=== PATIENT | female | born 2000 | race Caucasian/White ===

== ENCOUNTER 2018-04-15 20:04 | Emergency (ER) | payer OTHER ==
--- NOTE | 2018-04-15 21:19 | UC ---
Respiratory Complaint HPI - HPI Summary HPI Summary: Pt c/o of cough that began 6 weeks ago. Pt was diagnosed with bronchitis ~ 4 weeks ago and given amoxicillin and prednisone and symptoms resolved. Pt now states that cough has returned denies fever or URI like symptoms - History of Current Complaint Chief Complaint: UCEar Stated Complaint: COUGH,EAR,HEADACHE Time Seen by Provider: 04/15/18 21:04 Hx Obtained From: Patient Hx Last Menstrual Period: 03/29/18 ?: No Onset/Duration: Gradual Onset, Lasting Weeks, Still Present Timing: Intermittent Episodes Severity Initially: Mild Severity Currently: Mild Pain Intensity: 7 Character: Cough: Nonproductive Aggravating Factors: Deep Breaths, Recumbent Position Alleviating Factors: Nothing Associated Signs And Symptoms: Positive: URI, Nasal Congestion - Risk Factors Pulmonary Embolism Risk Factors: Negative Cardiac Risk Factors: Negative Pseudomonas Risk Factors: Negative Tuberculosis Risk Factors: Negative - Allergies/Home Medications Allergies/Adverse Reactions: Allergies Allergy/AdvReac Type Severity Reaction Status Date / Time No Known Allergies Allergy Verified 04/15/18 20:49 Home Medications: Home Medications Bupropion XL* [Wellbutrin XL *] 150 mg PO DAILY 04/15/18 [History Confirmed ] D-Methorphan/PE/Acetaminophen [Daytime Cold-Flu Relief Sftgl] 2 each PO DAILY PRN 04/15/18 [History Confirmed 04/15/18] Ibuprofen TAB* [Advil TAB*] 400 mg PO Q6H PRN 04/15/18 [History Confirmed ] PMH/Surg Hx/FS Hx/Imm Hx Previously Healthy: Yes - Surgical History Surgical History: Yes Surgery Procedure, Year, and Place: t & a. ear tubes. ear patch left ear - Family History Known Family History: Positive: Cardiac Disease - Social History Occupation: Employed Full-time Lives: With Family Alcohol Use: Rare Substance Use Type: None Smoking Status (MU): Current Every Day Smoker Type: Cigarettes Amount Used/How Often: 1 ppd Length of Time of Smoking/Using Tobacco: 2 yrs Have You Smoked in the Last Year: Yes Review of Systems Constitutional: Negative Skin: Negative Eyes: Negative ENT: Negative Respiratory: Cough Cardiovascular: Negative Gastrointestinal: Negative Genitourinary: Negative Motor: Negative Neurovascular: Negative Musculoskeletal: Negative Neurological: Negative Psychological: Negative Is Patient Immunocompromised?: No All Other Systems Reviewed And Are Negative: Yes Physical Exam Triage Information Reviewed: Yes Appearance: Well-Appearing Vital Signs: Initial Vital Signs Temp 97.7 F 04/15/18 20:52 Pulse 76 04/15/18 20:52 Resp 20 04/15/18 20:52 BP 99/62 04/15/18 20:52 Pulse Ox 100 04/15/18 20:52 Vital Signs Reviewed: Yes Eye Exam: Normal ENT Exam: Normal Dental Exam: Normal Neck exam: Normal Respiratory Exam: Normal Cardiovascular Exam: Normal Musculoskeletal Exam: Normal Neurological Exam: Normal Psychological Exam: Normal Skin Exam: Normal UC Diagnostic Evaluation - Laboratory O2 Sat by Pulse Oximetry: 100 Respiratory Course/Dx - Differential Dx/Diagnosis Differential Diagnosis/HQI/PQRI: Bronchitis Provider Diagnoses: post viral cough Discharge - Sign-Out/Discharge Documenting (check all that apply): Patient Departure All imaging exams completed and their final reports reviewed: No Studies - Discharge Plan Condition: Stable Disposition: HOME Prescriptions: Benzonatate CAP* [Tessalon 100 MG CAP*] 100 mg PO Q8H PRN #30 cap PRN Reason: Cough Cetirizine* [ZyrTEC 10 MG TAB*] 10 mg PO DAILY #14 tab predniSONE TAB* [Deltasone 20 MG TAB*] 20 mg PO DAILY #4 tab Patient Education Materials: Acute Cough (ED) Referrals: [facility] [Outside] No Primary Care Phys,NOPCP [Primary Care Provider] - - Billing Disposition and Condition Condition: STABLE Disposition: Home
== END 2018-04-15 21:29 | disposition home or self-care (01) ==
LOC: UCCORT 20:04
DX: R05 Cough (principal); F17.210 Nicotine dependence, cigarettes, uncomplicated
CPT/HCPCS: 99202; G0463

== ENCOUNTER 2019-03-18 13:51 | Emergency (ER) | payer OTHER ==
[2019-03-18 14:37] VITALS: BP 99/62
--- NOTE | 2019-03-18 14:53 | UC ---
Skin Complaint HPI - HPI Summary HPI Summary: 18-year-old female presents with complaints of a insect bite to her right forehead and headache. States she was bit by an unknown insect last evening. Noted severe stinging, burning, and swelling at the site of the bite. Patient states shortly afterwards she developed a frontal headache with some photophobia and mild nausea. No history of migraines. Denies fever, chills, swelling of lips, tongue, throat, ear, difficulty breathing, visual disturbances , slurred or difficulty speaking, dizziness, numbness, tingling, or weakness of the arms or legs. - History of Current Complaint Chief Complaint: UCHeadache Time Seen by Provider: 03/18/19 14:44 Stated Complaint: SKIN CONCERN Hx Obtained From: Patient Hx Last Menstrual Period: 02/05/19 Pain Intensity: 10 - Allergy/Home Medications Allergies/Adverse Reactions: Allergies Allergy/AdvReac Type Severity Reaction Status Date / Time No Known Allergies Allergy Verified 03/18/19 14:37 PMH/Surg Hx/FS Hx/Imm Hx Previously Healthy: Yes Psychological History: Depression - Surgical History Surgical History: Yes Surgery Procedure, Year, and Place: t & a. ear tubes. ear patch left ear. LEFT ovarian cyst removed, OCTOBER 2018. [facility], October 2018 - Family History Known Family History: Positive: Cardiac Disease, Non-Contributory - Social History Occupation: Employed Full-time Lives: Alone Alcohol Use: Rare Substance Use Type: None Smoking Status (MU): Current Every Day Smoker Type: eCigarettes Amount Used/How Often: 1 ppd Length of Time of Smoking/Using Tobacco: 2 yrs Have You Smoked in the Last Year: Yes Review of Systems All Other Systems Reviewed And Are Negative: Yes Constitutional: Negative: Fever, Chills Skin: Positive: Other - See HPI Eyes: Positive: Photophobia. Negative: Blurred Vision, Diplopia, Drainage, Eye Redness ENT: Negative: Sore Throat, Ear Ache, Nasal Discharge, Sinus Congestion, Sinus Pain/Tenderness Respiratory: Negative: Shortness Of Breath, Cough Cardiovascular: Positive: Negative Gastrointestinal: Positive: Nausea. Negative: Abdominal Pain, Vomiting, Diarrhea Genitourinary: Positive: Negative Musculoskeletal: Positive: Negative Neurological: Positive: Headache. Negative: Weakness, Paresthesia, Numbness Is Patient Immunocompromised?: No Physical Exam - Summary Physical Exam Summary: GENERAL APPEARANCE: Well developed, well nourished, alert and cooperative, and appears to be in no acute distress. HEAD: 3.5 cm area of mild erythema and edema noted to right forehead. EYES: Conjunctiva clear. No drainage. PERRL, EOM intact. Vision is grossly intact. EARS: External auditory canals and tympanic membranes clear, hearing grossly intact. NOSE: No nasal discharge. THROAT: No swelling of the lips or tongue. Pharynx normal. Tonsils surgically absent. Uvula midline. Airway patent. NECK: Neck supple, non-tender without lymphadenopathy. CARDIAC: Normal S1 and S2. No S3, S4 or murmurs. Rhythm is regular. There is no peripheral edema, cyanosis or pallor. Extremities are warm and well perfused. Capillary refill is less than 2 seconds. Peripheral pulses intact. LUNGS: Clear to auscultation without rales, rhonchi, wheezing or diminished breath sounds. ABDOMEN: Positive bowel sounds. Soft, nondistended, nontender. No guarding or rebound. No masses or hepatosplenomegally. MUSKULOSKELETAL: ROM intact to all extremities. No joint erythema or tenderness. Normal muscular development. Normal gait. NEUROLOGICAL: CN II-XII intact. Strength and sensation symmetric and intact throughout. SKIN: Skin normal color, texture and turgor. Triage Information Reviewed: Yes Vital Signs: Initial Vital Signs Temp 98.1 F 03/18/19 14:31 Pulse 92 03/18/19 14:31 Resp 18 03/18/19 14:31 BP 99/62 03/18/19 14:31 Pulse Ox 100 03/18/19 14:31 Vital Signs Reviewed: Yes Re-Evaluation - Re-Evaluation First Eval Re-Evaluation Time: 16:18 Change: Improved Comment: Patient states headache is still present but improving after the ketoralac. Will plan to d/c home for rest and continued symptomatic treatment. Course/Dx - Course Course Of Treatment: 18-year-old female presents with complaints of a insect bite to her right forehead and headache. States she was bit by an unknown insect last evening. Noted severe stinging, burning, and swelling at the site of the bite. Patient states shortly afterwards she developed a frontal headache with some photophobia and mild nausea. No history of migraines. Denies fever, chills, swelling of lips, tongue, throat, ear, difficulty breathing, visual disturbances , slurred or difficulty speaking, dizziness, numbness, tingling, or weakness of the arms or legs. Afebrile. Vital signs stable. Patient was neurologically intact, had a 3.5 cm area of mild erythema and edema noted to right forehead, otherwise unremarkable exam. She was given ketorolac 30 mg IM and ondansetron 4 mg PO in the clinic with improvement in her symptoms. Recommending using a topical steroid for a localized reaction to the insect bite. I have prescribed her triamcinolone cream twice a day for up to 2 weeks. Recommending symptomatic treatment for an acute headache including rest, fluids, and over-the -counter analgesics. Return here or follow up with her primary care provider in 3 days if symptoms are not improving. Anticipatory guidance and warning symptoms requiring dilation in the emergency room were reviewed with the patient. Verbalizes understanding and agrees with plan of care. - Differential Diagnoses - Skin Complaint Differential Diagnoses: Allergic Reaction, Cellulitis, Contact Dermatitis, Local Allergic Reaction, Other - Headache, migraine - Diagnoses Provider Diagnosis: Acute headache, Insect bite of forehead with local reaction Discharge ED - Sign-Out/Discharge Documenting (check all that apply): Patient Departure All imaging exams completed and their final reports reviewed: No Studies - Discharge Plan Condition: Stable Disposition: HOME Prescriptions: Triamcinolone 0.5% CREAM(NF) [Triamcinolone 0.5% CREAM*] 1 applic TOPICAL BID # 1 tube Patient Education Materials: Insect Bite or Sting (ED), Acute Headache (ED) Referrals: No Primary Care Phys,NOPCP [Primary Care Provider] - Additional Instructions: You were given an anti-inflammatory pain medication called ketorolac 30 mg in the clinic at 3:05 PM for your headache with some improvement. He should not take any further anti-inflammatory medication such as ibuprofen (Advil, Motrin) , naproxen (Aleve), or aspirin for at least 8 hours after receiving this medication. You may use [id number] acetaminophen (Tylenol) according directions as needed. You were given a medication called ondansetron 4 mg for the nausea. I will provide you with a prescription for triamcinolone cream that she may apply twice daily to the insect bite. Do not use for more than 2 weeks. Return here or follow up with her primary care provider in 3 days if symptoms are not improving. Seek immediate medical attention in the emergency room if you develop a fever greater than 100.5 F, have a worsening of your headache, visual disturbances, persistent dizziness, slurred or difficulty speaking, weakness, numbness, or tingling in your arms or legs, persistent or projectile vomiting, or any worsening of symptoms. - Billing Disposition and Condition Condition: STABLE Disposition: Home - Attestation Statements Provider Attestation: I was available for consult. This patient was seen by the DEX. The patient was not presented to, seen by, or examined by me. -El
[2019-03-18] MEDS ORDERED: Ketorolac INJ* 30 MG/ML 1 ML VIAL IM ONE (14:59)
[2019-03-18] MEDS ORDERED: Ondansetron ODT TAB* 4 MG PO ONE (14:59)
== END 2019-03-18 16:33 | disposition home or self-care (01) ==
LOC: UCCORT 13:51
DX: R51 Headache (principal); S00.86XA Insect bite (nonvenomous) of other part of head, initial encounter; W57.XXXA Bitten or stung by nonvenomous insect and other nonvenomous arthropods, initial encounter; Y93.9 Activity, unspecified; Y92.9 Unspecified place or not applicable; F17.290 Nicotine dependence, other tobacco product, uncomplicated
CPT/HCPCS: 96372; 99212; A9270-GY; G0463; J1885

== ENCOUNTER 2019-04-08 19:17 | Emergency (ER) | payer OTHER ==
[2019-04-08 19:39] VITALS: BP 105/58
--- NOTE | 2019-04-08 20:02 | UC ---
UC General HPI - HPI Summary HPI Summary: pt is c/o pain in her L lower back x 2 weeks. it worsens with any movement. the past 4 days she notes some frequent urination as well but has no burning. no fever or abdominal pain. no vaginal discharge or lesions and no risk/concern for std. - History of Current Complaint Chief Complaint: UCGU Stated Complaint: UTI SYMPTOMS Time Seen by Provider: 04/08/19 19:52 Hx Last Menstrual Period: 02/05/19 Pain Intensity: 10 Associated Signs & Symptoms: Positive: Other - no numb/weak extremities, no bowel/bladder dysfunction and no saddle anesthesia.. Negative: Abdominal Pain, Fever - Allergy/Home Medications Allergies/Adverse Reactions: Allergies Allergy/AdvReac Type Severity Reaction Status Date / Time No Known Allergies Allergy Verified 04/08/19 19:38 PMH/Surg Hx/FS Hx/Imm Hx Psychological History: Depression - Surgical History Surgical History: Yes Surgery Procedure, Year, and Place: t & a. ear tubes. ear patch left ear. LEFT ovarian cyst removed, OCTOBER 2018. [facility], October 2018 - Family History Known Family History: Positive: Cardiac Disease - Social History Occupation: Employed Full-time Alcohol Use: Rare Substance Use Type: None Smoking Status (MU): Current Every Day Smoker Type: eCigarettes Amount Used/How Often: 1 ppd Length of Time of Smoking/Using Tobacco: 2 yrs Have You Smoked in the Last Year: Yes Review of Systems All Other Systems Reviewed And Are Negative: No Constitutional: Negative: Fever, Chills Genitourinary: Negative: Dysuria, Hematuria Neurological: Negative: Weakness, Paresthesia, Numbness Physical Exam Triage Information Reviewed: Yes Appearance: Well-Appearing Vital Signs: Initial Vital Signs Temp 98.3 F 04/08/19 19:33 Pulse 95 04/08/19 19:33 Resp 18 04/08/19 19:33 BP 105/58 04/08/19 19:33 Pulse Ox 99 04/08/19 19:33 Vital Signs Reviewed: Yes Eyes: Positive: Conjunctiva Clear ENT: Positive: Normal ENT inspection Neck: Positive: Supple, Nontender, No Lymphadenopathy, Other: - c-spine non tender Respiratory: Positive: Lungs clear, Normal breath sounds, No respiratory distress Cardiovascular: Positive: RRR, No Murmur Abdomen Description: Positive: Nontender, No Organomegaly, Soft. Negative: CVA Tenderness (R), CVA Tenderness (L) Bowel Sounds: Positive: Present Musculoskeletal: Positive: Other: - Back: no deformity or rash. tender over L paraspinal mm's in lumbar region. ROM intact throughout but reproduces her pain. 5/5 strength, 2+ reflexes and sensation intact x4. no saddle anesthesia. steady gait. Neurological: Positive: Alert Psychological: Positive: Age Appropriate Behavior Skin Exam: Normal Skin: Negative: Rashes Course/Dx - Differential Dx - Multi-Symptom Differential Diagnoses: Other - non toxic. no acute abdomen. no concern for fx or cauda equina. u/a=unremarkable and hcg=neg. - Diagnoses Provider Diagnosis: Back pain Discharge ED - Sign-Out/Discharge Documenting (check all that apply): Patient Departure All imaging exams completed and their final reports reviewed: No Studies - Discharge Plan Condition: Stable Disposition: HOME Prescriptions: Cyclobenzaprine TAB* [Flexeril 10 MG TAB*] 10 mg PO TID PRN #10 tab PRN Reason: Spasms - Back Naproxen [Naprosyn 500 mg tab] 500 mg PO BID 5 Days #10 tablet Patient Education Materials: Acute Low Back Pain (ED) Referrals: Eduardo Craig MD [Medical Doctor] - 5 Days - Billing Disposition and Condition Condition: STABLE Disposition: Home
== END 2019-04-08 20:16 | disposition home or self-care (01) ==
LOC: UCCORT 19:17
DX: M54.5 Low back pain (principal); F17.290 Nicotine dependence, other tobacco product, uncomplicated
CPT/HCPCS: 81003; 84702; 99212; G0463

== ENCOUNTER 2019-05-03 21:21 | Emergency (ER) | payer OTHER ==
--- NOTE | 2019-05-03 21:31 | UC ---
Back Pain HPI - HPI Summary HPI Summary: 18 yo female presents s/p fall. She tells me that about 1.5 hours [employer] she was working at [employer] and slipped on a wet floor. Her feet went out from under her and she landed on her lower back and hit the back of her head on the ground. No LOC. She was able to get to her feet and finished her shift. States she did not report this incident. Has not taken anything OTC for her discomfort. After her shift was over she came directly to . Currently has a headache and pain in her left lower back. Denies dizziness, vision changes, numbness, tingling, weakness, n/v, abdominal pain, radiation of pain, saddle anesthesia, or loss of bowel/bladder control. - History of Current Complaint Stated Complaint: S/P FALL, BACK PAIN/HEAD PAIN Time Seen by Provider: 05/03/19 21:31 Hx Obtained From: Patient Hx Last Menstrual Period: 02/05/19 Onset/Duration: Sudden Onset Severity Initially: Moderate Severity Currently: Moderate Pain Intensity: 7 Pain Scale Used: 0-10 Numeric - Allergies/Home Medications Allergies/Adverse Reactions: Allergies Allergy/AdvReac Type Severity Reaction Status Date / Time No Known Allergies Allergy Verified 05/03/19 21:40 PMH/Surg Hx/FS Hx/Imm Hx - Additional Past Medical History Additional PMH: None - Surgical History Surgical History: Yes Surgery Procedure, Year, and Place: t & a. ear tubes. ear patch left ear. LEFT ovarian cyst removed, OCTOBER 2018. [facility], October 2018 - Family History Known Family History: Positive: Cardiac Disease, Non-Contributory - Social History Occupation: Employed Full-time Lives: With Family Alcohol Use: Rare Substance Use Type: None Smoking Status (MU): Current Every Day Smoker Type: eCigarettes Amount Used/How Often: 1 ppd Length of Time of Smoking/Using Tobacco: 2 yrs Have You Smoked in the Last Year: Yes Review of Systems All Other Systems Reviewed And Are Negative: No Constitutional: Positive: Negative Skin: Positive: Negative Respiratory: Positive: Negative Cardiovascular: Positive: Negative Gastrointestinal: Positive: Negative Genitourinary: Positive: Negative Neurovascular: Positive: Negative Musculoskeletal: Positive: Other: - Back pain Neurological: Positive: Headache Psychological: Positive: Negative Physical Exam - Summary Physical Exam Summary: GENERAL: NAD. WDWN. No pain distress. SKIN: No rashes, sores, ulcers, masses, lesions. HEENT: Head: AT/NC. No raccoon eyes or battles sign. No hematoma Eyes: PERRLA. EOM intact. Conjunctiva clear without inflammation or discharge. Ears: Hearing grossly normal. TMs intact, no bulging, erythema, or edema. No hemotympanum Nose: Nasal mucosa pink and moist. NTTP maxillary and frontal sinus. Throat: Posterior oropharynx without exudates, erythema, or tonsillar enlargement. Uvula midline. NECK: Supple. Nontender. FROM CHEST: CTAB. No r/r/w. No accessory muscle use. Breathing comfortably and in no distress. CV: RRR. Pulses intact. Brisk cap refill. ABDOMEN: Soft. NTTP. Bowel sounds present MSK: FROM in B/L UEs and LEs with symmetric strength. Mild TTP about left thoracic and lumbar paraspinal muscles. No ecchymosis or hematoma. No specific vertebral tenderness. NEURO: A&Ox3. 3 word recall, remote, recent memory, ability to follow 2-step directions, and attention intact. CN: II: Peripheral gallo intact. Vision normal. III, IV, : EOMI. No nystagmus. PERRLA. V: Sensations intact and symmetric. Opens mouth and clenches teeth. VII: No facial asymmetry. Forehead wrinkles. Grins, shuts eyes, frowns, puffs cheeks. VIII: Hearing intact to finger rub. IX, X: Swallows and coughs. Uvula midline. XI: Shrugs shoulders. Turns head against resistance. XII: No tongue deviation Heyazm-lh-gndt are intact. Gait with normal base. Romberg: maintains balance, no pronator drift. Normal speech. No facial drooping. PSYCH: Age appropriate behavior. Triage Information Reviewed: Yes Vital Signs: Vital Signs: Temp Pulse Resp BP Pulse Ox 98.6 F 87 16 111/77 100 05/03/19 21:36 05/03/19 21:36 05/03/19 21:36 05/03/19 21:36 05/03/19 21:36 Vital Signs Reviewed: Yes Diagnostics - Radiology Thoracic spine Radiology Interpretation Completed By: ED Physician Summary of Radiographic Findings: No fx Lumbar spine Radiology Interpretation Completed By: ED Physician Summary of Radiographic Findings: No fx Back Pain Course/Dx - Course Course Of Treatment: XR wet reads negative for fx. Suspect head injury ?concussion with back pain due to fall. Advised to rest, apply ice, and take tylenol/ibuprofen for discomfort as directed. Refrain from activities that worsen her headache symptoms such as texting, computer screens, tv time, and strenuous physical activity. Will write her a note for work tomorrow and have her f/u with her PCP to be rechecked within 5 days - Differential Dx/Diagnosis Provider Diagnosis: Head injury, Back pain, Fall Discharge ED - Sign-Out/Discharge Documenting (check all that apply): Patient Departure All imaging exams completed and their final reports reviewed: No - Discharge Plan Condition: Stable Disposition: HOME Patient Education Materials: Concussion (ED), Head Injury (ED), Back Pain (ED) Forms: *Work Release Referrals: No Primary Care Phys,NOPCP [Primary Care Provider] - [facility] [Outside] - 3 Days Additional Instructions: If you develop a fever, shortness of breath, chest pain, new or worsening symptoms - please call your PCP or go to the ED immediately. 1) Rest and apply ice to your back intermittently throughout the day to decrease pain 2) May take tylenol/ibuprofen for discomfort as directed 3) You may have sustained a mild concussion. Rest and avoid texting, computer screens, tv time, reading, straining your eyes, or strenuous physical activities as these may worsen your headache symptoms. 4) If you develop dizziness, nausea/vomiting, vision changes, numbness, tingling , or a severe headache - please go to the ER immediately 5) I recommend that you schedule an appointment with your doctor in 3 days for a recheck of your symptoms. - Billing Disposition and Condition Condition: STABLE Disposition: Home
[2019-05-03] MEDS ORDERED: Ibuprofen TAB* 400 MG PO ONE (21:40)
[2019-05-03 21:42] VITALS: BP 111/77
--- NOTE | 2019-05-04 07:57 | UC ---
- Progress Note Progress Note: xray report : IMPRESSION: NO THORACIC SPINE FRACTURE BY RADIOGRAPH. Course/Dx - Diagnoses Provider Diagnoses: Head injury, Back pain, Fall Discharge ED - Sign-Out/Discharge Documenting (check all that apply): Patient Departure All imaging exams completed and their final reports reviewed: Yes - Discharge Plan Condition: Stable Disposition: HOME Patient Education Materials: Concussion (ED), Head Injury (ED), Back Pain (ED) Forms: *Work Release Referrals: [facility] [Outside] - 3 Days No Primary Care Phys,NOPCP [Primary Care Provider] - Additional Instructions: If you develop a fever, shortness of breath, chest pain, new or worsening symptoms - please call your PCP or go to the ED immediately. 1) Rest and apply ice to your back intermittently throughout the day to decrease pain 2) May take tylenol/ibuprofen for discomfort as directed 3) You may have sustained a mild concussion. Rest and avoid texting, computer screens, tv time, reading, straining your eyes, or strenuous physical activities as these may worsen your headache symptoms. 4) If you develop dizziness, nausea/vomiting, vision changes, numbness, tingling , or a severe headache - please go to the ER immediately 5) I recommend that you schedule an appointment with your doctor in 3 days for a recheck of your symptoms. - Billing Disposition and Condition Condition: STABLE Disposition: Home
--- NOTE | 2019-05-04 15:19 | UC ---
- Progress Note Progress Note: Requested to complete Worker's Comp form for Marie Doe. Was off work today; met with patient briefly at the window. She has been using tylenol for pain control, but feels fit to return to full duties tomorrow. She states that there are no parts of her job duties which she will not be able to perform. has not scheduled a PMD follow up as she does not have a PMD. At this time, she does not need follow up. Course/Dx - Diagnoses Provider Diagnoses: Head injury, Back pain, Fall Discharge ED - Sign-Out/Discharge Documenting (check all that apply): Patient Departure All imaging exams completed and their final reports reviewed: Yes - Discharge Plan Condition: Stable Disposition: HOME Patient Education Materials: Concussion (ED), Head Injury (ED), Back Pain (ED) Forms: *Work Release Referrals: No Primary Care Phys,NOPCP [Primary Care Provider] - Additional Instructions: If you develop a fever, shortness of breath, chest pain, new or worsening symptoms - please call your PCP or go to the ED immediately. 1) Rest and apply ice to your back intermittently throughout the day to decrease pain 2) May take tylenol/ibuprofen for discomfort as directed 3) You may have sustained a mild concussion. Rest and avoid texting, computer screens, tv time, reading, straining your eyes, or strenuous physical activities as these may worsen your headache symptoms. 4) If you develop dizziness, nausea/vomiting, vision changes, numbness, tingling , or a severe headache - please go to the ER immediately 5) I recommend that you schedule an appointment with your doctor in 3 days for a recheck of your symptoms. - Billing Disposition and Condition Condition: STABLE Disposition: Home
== END 2019-05-03 22:12 | disposition home or self-care (01) ==
LOC: UCCORT 21:21
DX: S09.90XA Unspecified injury of head, initial encounter (principal); F17.290 Nicotine dependence, other tobacco product, uncomplicated; W13.3XXA Fall through floor, initial encounter; Y92.9 Unspecified place or not applicable
CPT/HCPCS: 72070; 72110; 99212; A9270-GY; G0463

== ENCOUNTER 2019-07-24 13:59 | Emergency (ER) | payer SELFPAY ==
[2019-07-24 14:30] VITALS: BP 99/64
--- NOTE | 2019-07-24 14:53 | UC ---
FLU HPI - HPI Summary HPI Summary: 19-year-old female who has had body aches, fever, chills, dry cough, scratchy throat which started in the past 24 hours. She has vomited twice today but associated with coughing. - History of Current Complaint Chief Complaint: UCRespiratory Stated Complaint: CONGESTION VOMITING Time Seen by Provider: 07/24/19 14:37 Hx Obtained From: Patient Hx Last Menstrual Period: 07/15/19 ?: No Onset/Duration: Sudden Onset Severity Currently: Moderate Severity Initially: Moderate Pain Intensity: 10 Associated Signs & Symptoms: Positive: Myalgia, Cough, Sore Throat, Nasal Congestion, Headache, Vomiting - Allergy/Home Medications Allergies/Adverse Reactions: Allergies Allergy/AdvReac Type Severity Reaction Status Date / Time No Known Allergies Allergy Verified 07/24/19 14:26 PMH/Surg Hx/FS Hx/Imm Hx Previously Healthy: Yes - Surgical History Surgical History: Yes Surgery Procedure, Year, and Place: t & a. ear tubes. ear patch left ear. LEFT ovarian cyst removed, OCTOBER 2018. [facility], October 2018 - Family History Known Family History: Positive: Cardiac Disease, Non-Contributory - Social History Occupation: Employed Full-time Alcohol Use: Occasionally Substance Use Type: None Smoking Status (MU): Heavy Every Day Tobacco Smoker Type: eCigarettes Amount Used/How Often: 1 ppd Length of Time of Smoking/Using Tobacco: 2 yrs Have You Smoked in the Last Year: Yes Review of Systems All Other Systems Reviewed And Are Negative: Yes Constitutional: Positive: Chills, Fatigue ENT: Positive: Sore Throat - Scratchy throat., Nasal Discharge Respiratory: Positive: Cough - Dry nonproductive cough. Gastrointestinal: Positive: Vomiting - Vomited twice today associated with coughing. Musculoskeletal: Positive: Myalgia Is Patient Immunocompromised?: No Physical Exam Triage Information Reviewed: Yes Appearance: Ill-Appearing - Mildly ill-appearing but nontoxic. Vital Signs: Initial Vital Signs Temp 98.4 F 07/24/19 14:26 Pulse 106 07/24/19 14:26 Resp 16 07/24/19 14:26 BP 99/64 07/24/19 14:26 Pulse Ox 100 07/24/19 14:26 Vital Signs Reviewed: Yes Eyes: Positive: Conjunctiva Clear ENT: Positive: Pharynx normal, Nasal drainage - Clear nasal coryza, TMs normal, Uvula midline Neck: Positive: Supple, Nontender, No Lymphadenopathy Respiratory: Positive: Lungs clear, Normal breath sounds, No respiratory distress, No accessory muscle use Cardiovascular: Positive: RRR, No Murmur, Pulses Normal, Brisk Capillary Refill Musculoskeletal Exam: Normal Neurological Exam: Normal Psychological Exam: Normal Skin Exam: Normal Flu Course/Dx - Course Course Of Treatment: The patient opted to be treated for influenza which I think she has. She is in the 24-48 hour window for treatment. She is to go home and rest, increase fluids and for any worsening symptoms follow-up at [facility]. - Differential Dx/Diagnosis Provider Diagnosis: Flu-like symptoms Discharge ED - Sign-Out/Discharge Documenting (check all that apply): Patient Departure All imaging exams completed and their final reports reviewed: No Studies - Discharge Plan Condition: Fair Disposition: HOME Prescriptions: Oseltamivir SUSP 75 MG dose* [Tamiflu SUSP 75 MG dose*] 75 mg PO BID 5 Days #10 oral.syrin Patient Education Materials: Influenza (DC) Forms: *Work Release Referrals: No Primary Care Phys,NOPCP [Primary Care Provider] - [facility] [Outside] Additional Instructions: Increase fluids, rest, may take Tylenol every 4 hours and Motrin every 8 hours for body aches and pains. Follow-up [facility] if no improvement in 3 or 4 days. - Billing Disposition and Condition Condition: FAIR Disposition: Home
== END 2019-07-24 15:03 | disposition home or self-care (01) ==
LOC: UCCORT 13:59
DX: R05 Cough (principal); R09.89 Other specified symptoms and signs involving the circulatory and respiratory systems; M79.10 Myalgia, unspecified site; R11.10 Vomiting, unspecified; R53.83 Other fatigue; J34.89 Other specified disorders of nose and nasal sinuses; F17.290 Nicotine dependence, other tobacco product, uncomplicated
CPT/HCPCS: 99212; G0463

== ENCOUNTER 2019-10-21 19:57 | Emergency (ER) | payer OTHER ==
[2019-10-21 20:03] VITALS: BP 121/71
[2019-10-21] MEDS ORDERED: HYDROcodone/ACETAMIN 5-325 MG* 1 TAB PO ONE (20:18)
--- NOTE | 2019-10-21 20:21 | UC ---
Dental HPI - HPI Summary HPI Summary: 19-year-old woman comes in with a chief complaint of right Upper jaw pain. 2 days ago patient had her right upper wisdom tooth removed. Pain is been getting worse during the course of the day. Pain radiates up into the right ear. No fevers. Patient has been gargling with salt water. Been taking ibuprofen which does not help very much with the pain. Patient is on Keflex. - History of Current Complaint Chief Complaint: UCDentalProblem Stated Complaint: DENTAL COMPLAINT Time Seen by Provider: 10/21/19 20:09 Hx Last Menstrual Period: 10/11/19 Pain Intensity: 10 - Allergies/Home Medications Allergies/Adverse Reactions: Allergies Allergy/AdvReac Type Severity Reaction Status Date / Time No Known Allergies Allergy Verified 10/21/19 20:03 Home Medications: Home Medications HYDROcodone/ACETAMIN 5-325 MG* [[place] 5-325 TAB*] 1 tab PO Q4H PRN #10 tab MDD 6 10/21/19 [Rx] Ibuprofen 800 mg PO Q6HR PRN 10/21/19 [History Confirmed 10/21/19] Norgestimate-Ethinyl Estradiol [Estarylla 0.25-0.035 mg Tablet] 1 each PO DAILY 10/21/19 [History Confirmed 10/21/19] cephALEXin [Keflex] 500 mg PO TID 10/21/19 [History Confirmed 10/21/19] PMH/Surg Hx/FS Hx/Imm Hx Previously Healthy: Yes - Surgical History Surgical History: Yes Surgery Procedure, Year, and Place: t & a. ear tubes. ear patch left ear. LEFT ovarian cyst removed, OCTOBER 2018. [facility], October 2018 - Family History Known Family History: Positive: Cardiac Disease, Non-Contributory - Social History Alcohol Use: Occasionally Substance Use Type: None Smoking Status (MU): Former Smoker Type: eCigarettes Amount Used/How Often: 1 ppd Length of Time of Smoking/Using Tobacco: 2 yrs Have You Smoked in the Last Year: Yes When Did the Patient Quit Smoking/Using Tobacco: 09/2019 Review of Systems All Other Systems Reviewed And Are Negative: Yes Constitutional: Positive: Negative Skin: Positive: Negative Eyes: Positive: Negative ENT: Positive: Dental Pain, Ear Ache Respiratory: Positive: Negative Cardiovascular: Positive: Negative Gastrointestinal: Positive: Negative Motor: Positive: Negative Neurovascular: Positive: Negative Musculoskeletal: Positive: Negative Neurological/Mental Status: Positive: Negative Psychological: Positive: Negative Is Patient Immunocompromised?: No Physical Exam Triage Information Reviewed: Yes Appearance: Well-Appearing, Well-Nourished, Pain Distress - MILD Vital Signs: Initial Vital Signs Temp 97.6 F 10/21/19 20:00 Pulse 98 10/21/19 20:00 Resp 16 10/21/19 20:00 BP 121/71 10/21/19 20:00 Pulse Ox 100 10/21/19 20:00 Vital Signs Reviewed: Yes Eye Exam: Normal Eyes: Positive: Conjunctiva Clear ENT: Positive: Pharynx normal, TMs normal, Uvula midline. Negative: Muffled voice, Hoarse voice Dental: Positive: Other: - Right rear upper jaw has an open socket where the wisdom tooth was. Neck: Positive: Supple Respiratory: Positive: No respiratory distress Musculoskeletal: Positive: Strength Intact, ROM Intact Neurological: Positive: Alert, Muscle Tone Normal Psychological: Positive: Age Appropriate Behavior Skin Exam: Normal Dental Complaint Course/Dx - Course Course Of Treatment: Patient's been taking ibuprofen and the pains getting worse. I recommended to the patient that she contact her dentist for further recommendations and follow- up. Prescribed [place] to help with the pain. Patient needs to get followed up again right away if she gets worse with pain fevers or feels ill. - Differential Dx/Diagnosis Provider Diagnosis: Pain, dental Discharge ED - Sign-Out/Discharge Documenting (check all that apply): Patient Departure All imaging exams completed and their final reports reviewed: No Studies - Discharge Plan Condition: Stable Disposition: HOME Prescriptions: HYDROcodone/ACETAMIN 5-325 MG* [[place] 5-325 TAB*] 1 tab PO Q4H PRN #10 tab MDD 6 PRN Reason: Pain - Moderate Patient Education Materials: Toothache (ED) Referrals: Kira Sands NP [Primary Care Provider] - Additional Instructions: FOLLOW UP WITH YOUR DENTIST. GET REEVALUATED IF NOT IMPROVING OR WORSE; PAIN, FEVER, YOU FEEL ILL OR ANY QUESTIONS OR CONCERNS. - Billing Disposition and Condition Condition: STABLE Disposition: Home
== END 2019-10-21 20:28 | disposition home or self-care (01) ==
LOC: UCCORT 19:57
DX: K08.89 Other specified disorders of teeth and supporting structures (principal); Z87.891 Personal history of nicotine dependence
CPT/HCPCS: 99212; G0463